=== PATIENT | female | born 2000 | race Caucasian/White ===

== ENCOUNTER 2019-08-15 20:58 | Emergency (ER) | payer OTHER, SELFPAY ==
--- NOTE | ~2019-08-15 | CT_ITS ---
EXAMINATION: CT abdomen pelvis wo con EXAM DATE: 08/15/2019 22:39 INDICATION: Right lower quadrant pain. TECHNIQUE: Spiral CT of the abdomen and pelvis was performed without contrast. Axial, coronal and s agittal images were reviewed. The dose-length product (DLP) for this examination was 409.76 mGy-cm. The exposure was tailored according to patient size (auto mA exposure control), and iterative recons truction (ASIR) was used as additional dose reduction technique. There is no prior study for compari son. FINDINGS: The liver, spleen, adrenal glands and pancreas are unremarkable. Gallbladder is unremarkab le. No biliary obstruction. There is no nephrolithiasis or hydronephrosis. The uterus is antevert ed and morphologically normal. Small free pelvic fluid, probably from ruptured physiologic cyst. The bladder is collapsed at time of imaging limiting evaluation. There is no retroperitoneal or pelvic l ymphadenopathy. Small umbilical fat-containing hernia. Most of the appendix is visualized and is normal, the tip is poorly distinguished from other small cam wel in the pelvis. The stomach and small bowel are unremarkable. There is expected amount of coloni c stool. No free intraperitoneal gas. The heart is normal in size. There are no pericardial or p leural effusions. The lung bases are unremarkable. There are no osteoblastic or osteolytic lesions identified. There is chronic bilateral L4 spondylolysis without spondylolisthesis. IMPRESSION: 1. No acute intra-abdominal findings. 2. Small free pelvic fluid probably recently ruptured physiologic or hemorrhagic cyst. 3. 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 4. Small umbilical hernia. Reviewed, dictated and finalized at location G. IMPRESSION: 1. No acute intra-abdominal findings. 2. Small free pelvic fluid probably recently ruptured physiologic or hemorrhag ic cyst. 3. 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 4. Small umbilical hernia.
--- NOTE | ~2019-08-15 | XR_ITS ---
EXAMINATION: XR chest 2V EXAM DATE: 08/15/2019 21:59 INDICATION: Right-sided chest pain. TECHNIQUE: Frontal and lateral projections of the chest obtained and reviewed. There is no prior ramon dy for comparison. FINDINGS: The lungs are clear. There are no pleural effusions. The cardiomediastinal silhouette is within normal limits. There is no pneumothorax suspected. The bones and soft tissues are unremarkab le. IMPRESSION: Unremarkable chest x-ray exam. Reviewed, dictated and finalized at location G.
[2019-08-15 21:10] VITALS: BP 126/73; PULSE 73; RESP 20; TEMP 37.7; O2SAT 100
[2019-08-15] MEDS: KETOROLAC 30 MG/ML VIAL (*BKC) (22:21)
--- NOTE | 2019-08-15 22:33 | ED.GENADULT ---
HPI - General Adult General Chief complaint: Unspecified Stated complaint: hurts to breath Time Seen by Provider: 08/15/19 22:33 History of Present Illness HPI narrative: See paper charting Related Data Allergies Allergy/AdvReac Type Severity Reaction Status Date / Time amoxicillin [From Augmentin] AdvReac Rash Verified 08/15/19 22:17 clavulanic acid AdvReac Rash Verified 08/15/19 22:17 [From Augmentin] Review of Systems Review of Systems: Narrative: See paper charting [facility] Social History Social History Gender identity (if verbalized by the patient): Female Exam Narrative: Exam Narrative: See paper charting. Course Reevaluation(s) Reevaluation #1: Went in to tell the patient and her mother the result, patient was sound asleep. The Toradol really worked. Told her that I prescribed ibuprofen for the pleurisy and ovarian cyst. I gave them Dr. Villalobos for follow-up. Date: 08/15/19 Time: 23:54 Vital Signs Vital signs: Vital Signs Temperature 99.9 F H 08/15/19 21:10 Pulse Rate 73 08/15/19 21:10 Respiratory Rate 08/15/19 21:10 Blood Pressure 126/73 08/15/19 21:10 Pulse Oximetry 100 08/15/19 21:10 Temperature 99.9 F H 08/15/19 21:10 Pulse Rate 73 08/15/19 21:10 Respiratory Rate 20 08/15/19 21:10 Blood Pressure 126/73 08/15/19 21:10 Pulse Oximetry 100 08/15/19 21:10 Medical Decision Making Medical Records Medical records reviewed: Yes I reviewed the patient's medical records. Vital Signs Vital Signs: Vital Signs Temperature 99.9 F H 08/15/19 21:10 Pulse Rate 73 08/15/19 21:10 Respiratory Rate 20 08/15/19 21:10 Blood Pressure 126/73 08/15/19 21:10 Pulse Oximetry 100 08/15/19 21:10 Temperature 99.9 F H 08/15/19 21:10 Pulse Rate 73 08/15/19 21:10 Respiratory Rate 20 08/15/19 21:10 Blood Pressure 126/73 08/15/19 21:10 Pulse Oximetry 100 08/15/19 21:10 Lab Data Labs: UCG Bedside Result Negative Reference Range: Negative Imaging Data Radiologist's impression: ITS Impressions Chest X-Ray 08/15/19 22:02 IMPRESSION: Unremarkable chest x-ray exam. Abdomen/Pelvis CT 08/15/19 22:40 IMPRESSION: 1. No acute intra-abdominal findings. 2. Small free pelvic fluid probably recently ruptured physiologic or hemorrhagic cyst. 3. 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 4. Small umbilical hernia. Discharge Plan Discharge Clinical Impression: Pleurisy Ovarian cyst Qualifiers: Laterality: unspecified laterality Qualified Code(s): N83.209 - Unspecified ovarian cyst, unspecified side Patient Disposition: Home, Self-Care Condition: Stable Instructions: Pleurisy (ED) Prescriptions: New ibuprofen 200 mg capsule 200 mg PO Q6H PRN (Reason: pain) Qty: 30 RF: 0 Follow-up/Referrals: PHYSICIAN,LOG PROCESSOR OPERATOR [Primary Care Provider] - Kael Villalobos MD [Physician] - (Call and set up a new patient appointment) Time of Disposition: 23:51
[2019-08-16 00:05] VITALS: BP 121/77; PULSE 77; RESP 15; TEMP 37.2; O2SAT 97
--- NOTE | 2019-08-16 00:05 | PC.NURSE ---
Iv removed, original IV not charted.
== END 2019-08-16 00:05 | disposition home or self-care (01) ==
PROVIDERS: Emergency Provider Emergency Medicine
DX: N83.209 Unspecified ovarian cyst, unspecified side (principal); R09.1 Pleurisy; M47.816 Spondylosis without myelopathy or radiculopathy, lumbar region
CPT/HCPCS: 71046; 74176; 81025; 99284; J1885